=== PATIENT | female | born 1975 | race Caucasian/White ===

== ENCOUNTER 2019-03-11 13:51 | Emergency (ER) | payer BC ==
--- OUTSIDE RECORDS SUMMARY | 2019-03-11 13:53 | XMS REPORT | Clinical Summary ---
:1975 Author Organization [facility] Address [address] [place] [address] Care Team Providers Name Role Phone Asked, No Pcp Primary Care Provider Unavailable Allergies No Known Allergies Medications Medication Sig Dispensed Refills Start Date End Date Status ibuprofen Take 400 mg by 0 Active (ADVIL,MOTRIN) 200 MG mouth every 6 tablet (six) hours as needed for mild pain. dicyclomine (BENTYL) 20 Take 1 tablet (20 10 tablet 0 01/10/2017 Active mg tablet mg total) by mouth every 6 (six) hours as needed (bloating, GI cramping) for up to 10 doses. Active Problems Problem Noted Date Pyelonephritis 09/02/2016 Urinary tract infection, site not specified 09/02/2016 Family History Medical History Relation Name Comments No Known Problems Brother Diabetes Father Hypertension Father Leukemia Father No Known Problems Mother No Known Problems Sister Relation Name Status Comments Brother Alive Father Mother Alive Sister Alive Social History Tobacco Use Types Packs/Day Years Used Date Former Smoker Tobacco Cessation: Counseling Given: Yes Alcohol Use Drinks/Week oz/Week Comments No Sex Assigned at Date Recorded Not on file Job Start Date Occupation Industry Not on file Not on file Not on file Travel History Travel Start Travel End No recent travel history available. 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
--- OUTSIDE RECORDS SUMMARY | 2019-03-11 13:54 | XMS REPORT ---
:1975 [facility] Address [address] [place] [address] [address] [place] [address] Care Team Providers Name Role Phone Unavailable Unavailable Unavailable Payers Payer Name Policy Type Policy Number Effective Date Expiration Date Problems This patient has no known problems. Allergies, Adverse Reactions, Alerts Allergy Allergy Status Severity Reaction(s) Onset Inactive Treating Comments Name Type Date Date Clinician No Known DA Active U 2012-05 Allergies -26 00:00:0 0 Medications This patient has no known medications. Results Test Description Test Time Test Comments Text Results Atomic Results Result Comments - CT ABD PELVIS W/CONT 2018-11-23 18:54:00 Name: KATELYNN VAZQUEZ [facility] : 1975 Age/S: 42 / F [address] [facility] Unit #: [id number] Loc: [place] [address] Phys: Litzy Thomas MD Acct: [id number] Dis Date: Status: REG ER PHONE #: [phone] Exam Date: 11/23/2018 1843 FAX #: Reason: diarrhea EXAMS: CPT: [id number] CT ABD PELVIS W/CONT [address]8732 EXAM: - CT ABD PELVIS W/CONT INDICATION: 42 years -old Female with diarrhea Location code:C3 TECHNIQUE: Contrast - IV contrast was given. No oral contrast was given Portal venous phase - abdomen and pelvis No delayed phase images were obtained. Reconstructions - coronal and sagittal planes Automated exposure reduction (Auto mA/Smart mA) was utilized in compliance with ACR Image Wisely with DLP of 734.86 mGy-cm. COMPARISON: 01/12/2018 FINDINGS: Statements: None. Thoracic: Noncalcified 4 mm pulmonary nodule in the right lower lobe is unchanged with 05/13/2017 exam. Hepatobiliary: The liver is normal without focal lesion. Status post cholecystectomy. No renal the left kidney is surgically absent. The right kidney has a normal CT appearance. No biliary dilation. Pancreas: Normal. Spleen: Normal. Adrenals: Normal. Genitourinary: The kidneys are normal. No evidence of hydronephrosis. Evaluation of the bladder is limited, but no obvious bladder abnormality is present. Gastrointestinal: No bowel obstruction or perienteric inflammation. The appendix is normal. Vascular: No evidence of aneurysm or dissection. Lymphatics: No enlarged lymph nodes by CT size criteria. Bones/Soft Tissues: No acute osseous findings. No ventral hernias. PAGE 1 Signed Report (CONTINUED) Name: KATELYNN VAZQUEZ [facility] : 1975 Age/S: 42 / F [address] [address] Unit #: [id number] Loc: [place] [address] Phys: Litzy Thomas MD Acct: [id number] Dis Date: Status: REG ER PHONE #: [phone] Exam Date: 11/23/2018 1843 FAX #: Reason: diarrhea EXAMS: CPT: [id number] CT ABD PELVIS W/CONT 71522 <Continued> Peritoneum/Other: No extraluminal air. No extraluminal fluid. IMPRESSION: 1. No acute abnormality with chronic findings similar to prior exam as above. at 1854 Reported and signed by: Fareed Ames MD CC: Litzy Thomas MD; Zunilda SIMMONS Technologist:Clemente Martin RT(R)(CT); .. CTDI: DLP: Trnscb Date/Time: 11/23/2018 (1853) t.[email or web address] Orig Print D/T: S: 11/23/2018 (1856) PAGE 2 Signed Report UA RFLX MICR CULT IF INDICATED 2018-11-23 18:42:00 Test Item Value Reference Range Comments UA COLOR (test code=COLU) YELLOW discript YEL/STRAW UA APPEARANCE (test code=APPU) CLEAR discript CLEAR UA GLUCOSE DIPSTICK (test code=DGLUU) NEGATIVE mg/dL NEG UA BILIRUBIN DIPSTICK (test code=BILU) NEGATIVE mg/dL NEG UA KETONE DIPSTICK (test code=KETU) NEGATIVE mg/dL NEG UA SPECIFIC GRAVITY (test code=SGU) 1.010 SG 1.005-1.030 UA BLOOD DIPSTICK (test code=PRINCE) TRACE mg/DL NEG UA PH DIPSTICK (test code=YESENIA) 6.5 pH UNITS 5.0-7.0 UA PROTEIN DIPSTICK (test code=PROU) NEGATIVE mg/dL NEG UA UROBILINIOGEN DIPSTICK (test code=URO) 0.2 mg/dL <2.0 UA NITRITE DIPSTICK (test code=EMILIO) NEGATIVE SCREEN NEG UA LEUKOCYTE ESTERASE DIPSTICK (test code=LEUU) NEGATIVE Leuk/mcL NEGATIVE UA WBC (test code=WBCU) 0-1 #WBC/HPF 0-3 UA RBC (test code=RBCU) 0-1 #RBC/HPF 0-3 UA BACTERIA (test code=BACU) TRACE /HPF NONE-TRACE UA SQUAMOUS CELLS (test code=SQU) TRACE /HPF NONE UA CULTURE NEEDED? (test code=UACULT) NO, WBC<10 Criteria Culture CHK SOURCE OF URINE: CLEAN CATCHless than 18 yrs old, neutropenic, or urological surgery? NOPrimary Indication for Culture: Delirium No Other SourceDRUGS OF ABUSE SCREEN [id number] 18:42:00 Test Item Value Reference Range Comments URN COCAINE (test code=COCAURN) NEGATIVE SCcutoff <300 NG/ML URN CANNABINOIDS (test code=CANNABURN) NEGATIVE SCcutoff <50 NG/ML URN AMPHETAMINE (test code=AMPHETURN) NEGATIVE SCcutoff <1000 NG/ML URN BARBITURATE (test code=BARBITURN) NEGATIVE SCcutoff <200 NG/ML URN BENZODIAZEPINE (test code=BENZOURN) NEGATIVE SCcutoff <200 NG/ML URN OPIATES (test code=OPIATURN) NEGATIVE SCcutoff <2000 NG/ML URN PHENCYCLIDINE (PCP) (test NEGATIVE SCcutoff <25 NG/ML code=PHENCURN) URN METHADONE (test code=METHAURN) NEGATIVE SCcutoff <300 NG/ML SOURCE OF URINE: CLEAN CATCHless than 18 yrs old, neutropenic, or urological surgery? NOPrimary Indication for Culture: Delirium No Other SourceUA RFLX MICR CULT IF [id number] 18:21:00 Test Item Value Reference Range Comments UA COLOR (test code=COLU) YELLOW discript YEL/STRAW UA APPEARANCE (test code=APPU) CLEAR discript CLEAR UA GLUCOSE DIPSTICK (test code=DGLUU) NEGATIVE mg/dL NEG UA BILIRUBIN DIPSTICK (test code=BILU) NEGATIVE mg/dL NEG UA KETONE DIPSTICK (test code=KETU) NEGATIVE mg/dL NEG UA SPECIFIC GRAVITY (test code=SGU) 1.010 SG 1.005-1.030 UA BLOOD DIPSTICK (test code=PRINCE) TRACE mg/DL NEG UA PH DIPSTICK (test code=YESENIA) 6.5 pH UNITS 5.0-7.0 UA PROTEIN DIPSTICK (test code=PROU) NEGATIVE mg/dL NEG UA UROBILINIOGEN DIPSTICK (test 0.2 mg/dL <2.0 code=URO) UA NITRITE DIPSTICK (test code=EMILIO) NEGATIVE SCREEN NEG UA LEUKOCYTE ESTERASE DIPSTICK (test NEGATIVE Leuk/mcL NEGATIVE code=LEUU) UA WBC (test code=WBCU) 0-1 #WBC/HPF 0-3 UA RBC (test code=RBCU) 0-1 #RBC/HPF 0-3 UA BACTERIA (test code=BACU) TRACE /HPF NONE-TRACE UA SQUAMOUS CELLS (test code=SQU) TRACE /HPF NONE UA CULTURE NEEDED? (test code=UACULT) NO, WBC<10 Criteria Culture CHK SOURCE OF URINE: CLEAN CATCHless than 18 yrs old, neutropenic, or urological surgery? NOPrimary Indication for Culture: Delirium No Other SourceDRUGS OF ABUSE SCREEN [id number] 18:21:00 Test Item Value Reference Range Comments URN COCAINE (test code=COCAURN) SCcutoff <300 NG/ML URN CANNABINOIDS (test code=CANNABURN) SCcutoff <50 NG/ML URN AMPHETAMINE (test code=AMPHETURN) SCcutoff <1000 NG/ML URN BARBITURATE (test code=BARBITURN) SCcutoff <200 NG/ML URN BENZODIAZEPINE (test code=BENZOURN) SCcutoff <200 NG/ML URN OPIATES (test code=OPIATURN) SCcutoff <2000 NG/ML URN PHENCYCLIDINE (PCP) (test code=PHENCURN) SCcutoff <25 NG/ML URN METHADONE (test code=METHAURN) SCcutoff <300 NG/ML SOURCE OF URINE: CLEAN CATCHless than 18 yrs old, neutropenic, or urological surgery? NOPrimary Indication for Culture: Delirium No Other SourceBASIC METABOLIC [id number] 18:13:00 Test Item Value Reference Range Comments SODIUM (test code=NA) 138 mmol/L 134-147 POTASSIUM (test code=K) 4.0 mmol/L 3.4-5.0 CHLORIDE (test code=CL) 106 mmol/L 100-108 CARBON DIOXIDE (test code=CO2) 27 mmol/L 21-32 ANION GAP (test code=GAP) 5.0 GAP calc 4.0-15.0 GLUCOSE (test code=GLU) 91 MG/DL 70-110 BLOOD UREA NITROGEN (test code=BUN) 12 MG/DL 7-18 GLOMERULAR FILTRATION RATE (test >=60 max estimate estGFR >60 code=GFR) CREATININE (test code=CREAT) 0.9 MG/DL 0.6-1.0 CALCIUM (test code=CA) 8.7 MG/DL 8.5-10.1 Completed by Nursing: PARADISEHEPATIC FUNCTION [id number] 18:13:00 Test Item Value Reference Range Comments TOTAL PROTEIN (test code=PROT) 7.6 G/DL 6.4-8.2 ALBUMIN (test code=ALB) 3.6 G/DL 3.4-5.0 BILIRUBIN TOTAL (test code=BILT) 0.40 MG/DL 0.2-1.2 BILIRUBIN DIRECT (test code=BILD) 0.10 MG/DL 0.00-0.30 BILIRUBIN INDIRECT (test code=BILIND) 0.30 MG/DL 0.2-1.2 SGOT/AST (test code=AST) 10 Unit/L 15-37 SGPT/ALT (test code=ALT) 17 Unit/L 12-78 ALKALINE PHOSPHATASE TOTAL (test code=ALKP) 72 Unit/L 45-117 Completed by Nursing: [id number] 18:13:00 Test Item Value Reference Range Comments LIPASE (test code=LIP) 252 Unit/L 114-286 Completed by Nursing: [id number] 18:13:00 Test Item Value Reference Range Comments TROPONIN-I (test < 0.015 NG/ML 0.000-0.045 Negative: </=0.045 Positive: code=TROPI) >/=0.046 Correlation with serial results, other cardiac markers, and clinical findings is necessary to determine the clinical significance of this result. Quantitative results using different methodologies should not be compared to one another as numerical results may varyby method. Completed by Nursing: PARADISEBASIC METABOLIC [id number] 18:05:00 Test Item Value Reference Range Comments SODIUM (test code=NA) 138 mmol/L 134-147 POTASSIUM (test code=K) 4.0 mmol/L 3.4-5.0 CHLORIDE (test code=CL) 106 mmol/L 100-108 CARBON DIOXIDE (test code=CO2) 27 mmol/L 21-32 ANION GAP (test code=GAP) 5.0 GAP calc 4.0-15.0 GLUCOSE (test code=GLU) 91 MG/DL 70-110 BLOOD UREA NITROGEN (test code=BUN) 12 MG/DL 7-18 GLOMERULAR FILTRATION RATE (test code=GFR) estGFR >60 CREATININE (test code=CREAT) MG/DL 0.6-1.0 CALCIUM (test code=CA) 8.7 MG/DL 8.5-10.1 Completed by Nursing: PARADISEHEPATIC FUNCTION [id number] 18:05:00 Test Item Value Reference Range Comments TOTAL PROTEIN (test code=PROT) G/DL 6.4-8.2 ALBUMIN (test code=ALB) G/DL 3.4-5.0 BILIRUBIN TOTAL (test code=BILT) MG/DL 0.2-1.2 BILIRUBIN DIRECT (test code=BILD) MG/DL 0.00-0.30 BILIRUBIN INDIRECT (test code=BILIND) MG/DL 0.2-1.2 SGOT/AST (test code=AST) Unit/L 15-37 SGPT/ALT (test code=ALT) Unit/L 12-78 ALKALINE PHOSPHATASE TOTAL (test code=ALKP) Unit/L 45-117 Completed by Nursing: [id number] 18:05:00 Test Item Value Reference Range Comments LIPASE (test code=LIP) Unit/L 114-286 Completed by Nursing: [id number] 18:05:00 Test Item Value Reference Range Comments TROPONIN-I (test code=TROPI) NG/ML 0.000-0.045 Completed by Nursing: VALENTE RFLX MICR CULT IF [id number] 17:54:00 Test Item Value Reference Range Comments UA COLOR (test code=COLU) YELLOW discript YEL/STRAW UA APPEARANCE (test code=APPU) CLEAR discript CLEAR UA GLUCOSE DIPSTICK (test code=DGLUU) NEGATIVE mg/dL NEG UA BILIRUBIN DIPSTICK (test code=BILU) NEGATIVE mg/dL NEG UA KETONE DIPSTICK (test code=KETU) NEGATIVE mg/dL NEG UA SPECIFIC GRAVITY (test code=SGU) 1.010 SG 1.005-1.030 UA BLOOD DIPSTICK (test code=PRINCE) TRACE mg/DL NEG UA PH DIPSTICK (test code=YESENIA) 6.5 pH UNITS 5.0-7.0 UA PROTEIN DIPSTICK (test code=PROU) NEGATIVE mg/dL NEG UA UROBILINIOGEN DIPSTICK (test code=URO) 0.2 mg/dL <2.0 UA NITRITE DIPSTICK (test code=EMILIO) NEGATIVE SCREEN NEG UA LEUKOCYTE ESTERASE DIPSTICK (test NEGATIVE Leuk/mcL NEGATIVE code=LEUU) UA CULTURE NEEDED? (test code=UACULT) Criteria Culture CHK SOURCE OF URINE: CLEAN CATCHless than 18 yrs old, neutropenic, or urological surgery? NOPrimary Indication for Culture: Delirium No Other SourceDRUGS OF ABUSE SCREEN [id number] 17:54:00 Test Item Value Reference Range Comments URN COCAINE (test code=COCAURN) SCcutoff <300 NG/ML URN CANNABINOIDS (test code=CANNABURN) SCcutoff <50 NG/ML URN AMPHETAMINE (test code=AMPHETURN) SCcutoff <1000 NG/ML URN BARBITURATE (test code=BARBITURN) SCcutoff <200 NG/ML URN BENZODIAZEPINE (test code=BENZOURN) SCcutoff <200 NG/ML URN OPIATES (test code=OPIATURN) SCcutoff <2000 NG/ML URN PHENCYCLIDINE (PCP) (test code=PHENCURN) SCcutoff <25 NG/ML URN METHADONE (test code=METHAURN) SCcutoff <300 NG/ML SOURCE OF URINE: CLEAN CATCHless than 18 yrs old, neutropenic, or urological surgery? NOPrimary Indication for Culture: Delirium No Other SourceCBC W/AUTO [id number] 17:48:00 Test Item Value Reference Range Comments WHITE BLOOD CELL (test code=WBC) 10.7 K/mm3 3.5-11.0 RED BLOOD CELL (test code=RBC) 4.43 M/mm3 4.70-6.10 HEMOGLOBIN (test code=HGB) 14.0 G/DL 10.4-14.9 HEMATOCRIT (test code=HCT) 40.9 % 31.5-44.1 MEAN CELL VOLUME (test code=MCV) 92.3 Fl 84.5-98.6 MEAN CELL HGB (test code=MCH) 31.6 pg 27.0-34.2 MEAN CELL HGB CONCETRATION (test code=MCHC) 34.2 G/DL 31.5-34.0 RED CELL DISTRIBUTION WIDTH (test code=RDW) 12.8 SD 11.5-14.5 PLATELET COUNT (test code=PLT) 367.0 K/mm3 150-450 MEAN PLATELET VOLUME (test code=MPV) 8.60 fL 7.0-10.5 NEUTROPHIL % (test code=NT%) 59.1 % 40-76 LYMPHOCYTE % (test code=LY%) 32.8 % 20.5-51.1 MONOCYTE % (test code=MO%) 6.9 % 1.7-9.3 EOSINOPHIL % (test code=EO%) 1.0 % 0.0-6.0 BASOPHIL % (test code=BA%) 0.2 % 0.0-2.0 NEUTROPHIL # (test code=NT#) 6.29 K/mm3 1.8-7.6 LYMPHOCYTE # (test code=LY#) 3.5 K/mm3 0.6-3.2 MONOCYTE # (test code=MO#) 0.7 K/mm3 0.3-1.1 EOSINOPHIL # (test code=EO#) 0.1 K/mm3 0.0-0.4 BASOPHIL # (test code=BA#) 0.0 K/mm3 0.0-0.1 MANUAL DIFF REQUIRED (test code=MDIFF) NO DIFF/SCN CRITERIA COMPREHENSIVE METABOLIC [id number] 20:58:00 Test Item Value Reference Range Comments SODIUM (test code=NA) 139 mmol/L 134-147 POTASSIUM (test code=K) 4.2 mmol/L 3.4-5.0 CHLORIDE (test code=CL) 107 mmol/L 100-108 CARBON DIOXIDE (test code=CO2) 22 mmol/L 21-32 ANION GAP (test code=GAP) 10.0 GAP calc 4.0-15.0 GLUCOSE (test code=GLU) 88 MG/DL 70-110 BLOOD UREA NITROGEN (test code=BUN) 12 MG/DL 7-18 GLOMERULAR FILTRATION RATE (test >=60 max estimate estGFR >60 code=GFR) CREATININE (test code=CREAT) 0.9 MG/DL 0.6-1.0 TOTAL PROTEIN (test code=PROT) 7.1 G/DL 6.4-8.2 ALBUMIN (test code=ALB) 3.4 G/DL 3.4-5.0 GLOBULIN (test code=GLOB) 3.7 GM/dL ALBUMIN/GLOBULIN RATIO (test 0.9 RATIO 1.2-2.2 code=A/G) CALCIUM (test code=CA) 8.6 MG/DL 8.5-10.1 BILIRUBIN TOTAL (test code=BILT) 0.20 MG/DL 0.2-1.2 SGOT/AST (test code=AST) 12 Unit/L 15-37 SGPT/ALT (test code=ALT) 16 Unit/L 12-78 ALKALINE PHOSPHATASE TOTAL (test 63 Unit/L 45-117 code=ALKP) COMPREHENSIVE METABOLIC [id number] 20:32:00 Test Item Value Reference Range Comments SODIUM (test code=NA) 139 mmol/L 134-147 POTASSIUM (test code=K) 4.2 mmol/L 3.4-5.0 CHLORIDE (test code=CL) 107 mmol/L 100-108 CARBON DIOXIDE (test code=CO2) 22 mmol/L 21-32 ANION GAP (test code=GAP) 10.0 GAP calc 4.0-15.0 GLUCOSE (test code=GLU) 88 MG/DL 70-110 BLOOD UREA NITROGEN (test code=BUN) 12 MG/DL 7-18 GLOMERULAR FILTRATION RATE (test code=GFR) estGFR >60 CREATININE (test code=CREAT) MG/DL 0.6-1.0 TOTAL PROTEIN (test code=PROT) G/DL 6.4-8.2 ALBUMIN (test code=ALB) G/DL 3.4-5.0 GLOBULIN (test code=GLOB) GM/dL ALBUMIN/GLOBULIN RATIO (test code=A/G) RATIO 1.2-2.2 CALCIUM (test code=CA) 8.6 MG/DL 8.5-10.1 BILIRUBIN TOTAL (test code=BILT) MG/DL 0.2-1.2 SGOT/AST (test code=AST) Unit/L 15-37 SGPT/ALT (test code=ALT) Unit/L 12-78 ALKALINE PHOSPHATASE TOTAL (test code=ALKP) Unit/L 45-117 URINALYSIS [id number] 20:26:00 Test Item Value Reference Range Comments UA COLOR (test code=COLU) YELLOW discript YEL/STRAW UA APPEARANCE (test code=APPU) CLEAR discript CLEAR UA GLUCOSE DIPSTICK (test code=DGLUU) NEGATIVE mg/dL NEG UA BILIRUBIN DIPSTICK (test code=BILU) NEGATIVE mg/dL NEG UA KETONE DIPSTICK (test code=KETU) NEGATIVE mg/dL NEG UA SPECIFIC GRAVITY (test code=SGU) 1.020 SG 1.005-1.030 UA BLOOD DIPSTICK (test code=PRINCE) 1+ mg/DL NEG UA PH DIPSTICK (test code=YESENIA) 5.5 pH UNITS 5.0-7.0 UA PROTEIN DIPSTICK (test code=PROU) NEGATIVE mg/dL NEG UA UROBILINIOGEN DIPSTICK (test code=URO) 0.2 mg/dL <2.0 UA NITRITE DIPSTICK (test code=EMILIO) NEGATIVE SCREEN NEG UA LEUKOCYTE ESTERASE DIPSTICK (test NEGATIVE Leuk/mcL NEGATIVE code=LEUU) UA WBC (test code=WBCU) NONE SEEN #WBC/HPF 0-3 UA RBC (test code=RBCU) 1-3 #RBC/HPF 0-3 UA BACTERIA (test code=BACU) NONE SEEN /HPF NONE-TRACE UA SQUAMOUS CELLS (test code=SQU) NONE SEEN /HPF NONE URINALYSIS [id number] 20:25:00 Test Item Value Reference Range Comments UA COLOR (test code=COLU) YELLOW discript YEL/STRAW UA APPEARANCE (test code=APPU) CLEAR discript CLEAR UA GLUCOSE DIPSTICK (test code=DGLUU) NEGATIVE mg/dL NEG UA BILIRUBIN DIPSTICK (test code=BILU) NEGATIVE mg/dL NEG UA KETONE DIPSTICK (test code=KETU) NEGATIVE mg/dL NEG UA SPECIFIC GRAVITY (test code=SGU) 1.020 SG 1.005-1.030 UA BLOOD DIPSTICK (test code=PRINCE) 1+ mg/DL NEG UA PH DIPSTICK (test code=YESENIA) 5.5 pH UNITS 5.0-7.0 UA PROTEIN DIPSTICK (test code=PROU) NEGATIVE mg/dL NEG UA UROBILINIOGEN DIPSTICK (test code=URO) 0.2 mg/dL <2.0 UA NITRITE DIPSTICK (test code=EMILIO) NEGATIVE SCREEN NEG UA LEUKOCYTE ESTERASE DIPSTICK (test NEGATIVE Leuk/mcL NEGATIVE code=LEUU) CBC W/AUTO [id number] 20:23:00 Test Item Value Reference Range Comments WHITE BLOOD CELL (test code=WBC) 9.2 K/mm3 3.5-11.0 RED BLOOD CELL (test code=RBC) 4.45 M/mm3 4.70-6.10 HEMOGLOBIN (test code=HGB) 13.6 G/DL 10.4-14.9 HEMATOCRIT (test code=HCT) 40.0 % 31.5-44.1 MEAN CELL VOLUME (test code=MCV) 89.9 Fl 84.5-98.6 MEAN CELL HGB (test code=MCH) 30.6 pg 27.0-34.2 MEAN CELL HGB CONCETRATION (test code=MCHC) 34.0 G/DL 31.5-34.0 RED CELL DISTRIBUTION WIDTH (test code=RDW) 13.3 SD 11.5-14.5 PLATELET COUNT (test code=PLT) 298.0 K/mm3 150-450 MEAN PLATELET VOLUME (test code=MPV) 8.70 fL 7.0-10.5 NEUTROPHIL % (test code=NT%) 55.0 % 40-76 LYMPHOCYTE % (test code=LY%) 36.8 % 20.5-51.1 MONOCYTE % (test code=MO%) 6.3 % 1.7-9.3 EOSINOPHIL % (test code=EO%) 1.5 % 0.0-6.0 BASOPHIL % (test code=BA%) 0.4 % 0.0-2.0 NEUTROPHIL # (test code=NT#) 5.08 K/mm3 1.8-7.6 LYMPHOCYTE # (test code=LY#) 3.4 K/mm3 0.6-3.2 MONOCYTE # (test code=MO#) 0.6 K/mm3 0.3-1.1 EOSINOPHIL # (test code=EO#) 0.1 K/mm3 0.0-0.4 BASOPHIL # (test code=BA#) 0.0 K/mm3 0.0-0.1 MANUAL DIFF REQUIRED (test code=MDIFF) NO DIFF/SCN CRITERIA TROPONIN I [id number] 20:20:00 Test Item Value Reference Range Comments TROPONIN I RAPID (test 0.00 ng/mL 0.00-0.08 - The use of serial sampling code=TROPIRAP) and testing protocol is a recommended practice- An elevated troponin level alone is often not sufficient for diagnosis of myocardial infarction. - XR CHEST 2 [id number] 19:54:00 Name: KATELYNN VAZQUEZ [facility] : 1975 Age/S: 42 / F [address] [address] Unit #: [id number] Loc: [place] [address] Phys: Litzy Thomas MD Acct: [id number] Dis Date: Status: REG ER PHONE #: [phone] Exam Date: 08/07/20181944 FAX #: Reason: cough, chest pain EXAMS: CPT: [id number] XR CHEST 2 V [id number] Fluoro Time: DAP (Gy m2): Air Kerma (mGy): Chest x-ray 2 views History: cough, chest pain Comparison: March 31, 2018 Location: R16 Number of images: 2 The heart appears unchanged in size. Pulmonary vasculatureis unremarkable. The visualized lung singh appear to be free of disease. The bones appear unchanged. IMPRESSION: There is no radiographic evidence of acute cardiopulmonary disease. Electronically Signed by Flor Hernandez on at 1954 Reported and signed by: Karlo Hernandez M.D. CC: Litzy Thomas MD; Sandra Moreno NP; Sanjuanita Johnson MD PAGE 1 Signed Report Name: KATELYNN VAZQUEZ [facility] : 05/1976 Age/S: 42 / F [address] [address] Unit #: [id number] Loc: [place] [address] Phys: Litzy Thomas MD Acct: [id number] Dis Date: Status: REG ER PHONE #: [phone] Exam Date: 08/07/20181944 FAX #: Reason: cough, chest pain EXAMS: CPT: [id number] XR CHEST 2 V 67433 Fluoro Time: DAP (Gy m2): Air Kerma (mGy): < Continued> Technologist: Clemente Martin, RT(R)(CT); ... Trnscb Date/Time: 08/07/2018 (1953) t.SDR.PMT Orig Print D/T: S: 08/07/2018 (1956) PAGE 2 Signed Report
--- OUTSIDE RECORDS SUMMARY | 2019-03-11 13:54 | XMS REPORT ---
:1975 Author Organization [employer] Care Team Providers Name Role Phone Sharon Huffman Provider Role Unavailable Allergies, Adverse Reactions, Alerts Substance Reaction Event Type N.K.D.A. Info Not Available Non Drug Allergy Problems Problem Type Condition Code Onset Dates Condition Status Problem BMI 45.0-49.9, adult Z68.42 Active Problem Elevated BP without diagnosis of R03.0 Active hypertension Assessment Hypercholesterolemia E78.00 Active Assessment Hyperglycemia R73.9 Active Problem Hyperglycemia R73.9 Active Problem Morbid obesity E66.01 Active Problem Hypercholesterolemia E78.00 Active Problem Cancer C80.1 Active Problem History of kidney cancer Z85.528 Active Problem Abnormal thyroid function test R94.6 Active Problem Palpitations R00.2 Active Medications No Known Medications Results No Known Results Summary Purpose [employer] Submission
--- NOTE | 2019-03-11 14:42 | RAD REPORT ---
EXAM DESCRIPTION: RAD - Chest Single View - 03/11/2019 2:27 pm CLINICAL HISTORY: PALPITATIONS Chest pain. COMPARISON: Chest Pa And Lat (2 Views) dated 06/13/2017 FINDINGS: Portable technique limits examination quality. The lungs are grossly clear. The heart is mildly enlarged in size. No displaced fractures.
[2019-03-11 14:48] LABS: Absolute Lymphocytes (CBC) 2.2 K/uL (0.7-4.9); Basophils % 0.4 % (0-1.3); Lymphocytes % 16.6 % (15.3-44.8); MPV 7.3 fL (7.6-11.3)
[2019-03-11 14:52] LABS: Protime INR 1.04
[2019-03-11 15:04] LABS: ALT/SGPT 16 U/L (12-78); AST/SGOT 7 U/L (15-37); Albumin 3.5 g/dL (3.4-5.0); Alkaline Phosphatase 64 U/L (45-117); BUN Blood Urea Nitrogen 14 mg/dL (7-18); Bicarbonate 27 mmol/L (21-32); Bilirubin Direct < 0.1 mg/dL (0-0.2); Bilirubin Total 0.3 mg/dL (0.2-1.0); Glucose Level 107 mg/dL (74-106); Magnesium 2.1 mg/dL (1.8-2.4); NT PRO-BNP 207 pg/mL (<125); Potassium 4.1 mmol/L (3.5-5.1); Protein, Total 7.5 g/dL (6.4-8.2); Sodium Level 138 mmol/L (136-145); Troponin (Emerg Dept Use Only) < 0.02 ng/mL (0.0-0.045)
[2019-03-11] MEDS ORDERED: NA CHLORIDE 0.9% 500 ML ONE (15:56)
--- NOTE | 2019-03-11 16:56 | EKG ---
Test Date: 2019-03-11 Test Time: 14:04:18 Plan Manager: ROMANA MEASUREMENT RESULTS: Intervals: Rate: 99 NV: 138 QRSD: 76 QT: 342 QTc: 438 [place]: P: 76 NV: 138 QRS: 72 T: 69 INTERPRETIVE STATEMENTS: Normal sinus rhythm Cannot rule out Anterior infarct, age undetermined Abnormal ECG Compared to ECG 06/13/2017 12:23:08 No significant changes Electronically Signed On 03-11-19 16:55:09 CDT by Emiliano Perkins
--- NOTE | 2019-03-11 17:22 | ER ---
Nurse's Notes [facility] Name: Sonal Monique Age: 43 yrs Sex: Female : 1975 Arrival Date: 03/11/2019 Time: 13:56 Bed 8 Private MD: Diagnosis: Palpitations;Chest pain, unspecified Presentation: 03/11 13:57 Presenting complaint: Patient states: "I was just at work and started having aa5 palpitations, chest tightness, sweaty, and felt like I was going to pass out". Pt currently reports palpitations and chest tightness. 13:57 Transition of care: patient was not received from another setting of care. Onset of aa5 symptoms was March 11, 2019. Risk Assessment: Do you want to hurt yourself or someone else? Patient reports no desire to harm self or others. Initial Sepsis Screen: Does the patient meet any 2 criteria? HR > 90 bpm. Does the patient have a suspected source of infection? No. Patient's initial sepsis screen is negative. Care prior to arrival: None. 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 - Social history:: Smoking status: Patient/guardian denies using tobacco. - Ebola Screening: : No symptoms or risks identified at this time. Screenin:21 Abuse screen: Denies threats or abuse. Denies injuries from another. Nutritional ph screening: No deficits noted. Tuberculosis screening: No symptoms or risk factors identified. Fall Risk None identified. Assessment: 14:43 General: Appears in no apparent distress. comfortable, obese, well groomed, Behavior is ph calm, cooperative, appropriate for age, Denies fever, chills. Pain: Complains of pain in chest Quality of pain is described as "tight" Pain began suddenly. Neuro: Level of Consciousness is awake, alert, obeys commands, Oriented to person, place, time, situation. Cardiovascular: Reports chest pain, lightheadedness, nausea, palpitations, Denies shortness of breath, syncope, vomiting, Capillary refill < 3 seconds in bilateral fingers Patient's skin is warm and dry. Rhythm is sinus rhythm Chest pain quality is "tight" is located in right left anterior chest wall. Respiratory: Airway is patent Respiratory effort is even, unlabored, Respiratory pattern is regular, symmetrical, Denies shortness of breath. GI: Reports nausea, Patient currently denies abdominal pain, diarrhea, vomiting. Derm: Skin is intact, is healthy with good turgor, Skin is pink, warm \\T\\ dry. Musculoskeletal: Circulation, motion, and sensation intact. Range of motion: intact in all extremities. 16:00 Reassessment: Patient appears in no apparent distress at this time. Patient and/or ph family updated on plan of care and expected duration. Pain level reassessed. Patient is alert, oriented x 3, equal unlabored respirations, skin warm/dry/pink. 17:29 Reassessment: Patient appears in no apparent distress at this time. Patient and/or ph family updated on plan of care and expected duration. Pain level reassessed. Patient is alert, oriented x 3, equal unlabored respirations, skin warm/dry/pink. Vital Signs: 14:00 BP 148 / 94; Pulse 103; Resp 20 S; Pulse Ox 97% on R/A; Weight 145.15 kg (R); Height 5 aa5 ft. 6 in. (167.64 cm) (R); Pain 4/10; 14:05 Temp 98.0(O); dh3 14:46 BP 136 / 85; Pulse 85; Resp 18; Pulse Ox 100% on R/A; ph 15:44 BP 124 / 81; Pulse 82; Resp 18; Pulse Ox 100% on R/A; ph 16:56 BP 124 / 82; Pulse 85; Resp 16; Pulse Ox 100% ; ph 14:00 Body Mass Index 51.65 (145.15 kg, 167.64 cm) aa5 ED Course: 13:56 Patient arrived in ED. mr 13:56 Arm band placed on Patient placed in an exam room, on a stretcher. aa5 14:00 Keara Haji, RN is Primary Nurse. ph 14:06 Triage completed. aa5 14:07 EKG done, by surgical services tech. reviewed by Win Benitez MD. at1 14:09 Louie Peralta MD is Attending Physician. kdr 14:25 Patient has correct armband on for positive identification. Placed in gown. Bed in low ph position. Call light in reach. Side rails up X 1. pig lead melter helper on. Pulse ox on. NIBP on. Door closed. Noise minimized. Warm blanket given. Head of bed elevated. 14:26 XRAY Chest (1 view) In Process Unspecified. EDMS 14:26 Initial lab(s) drawn, by me, sent to lab. Inserted saline lock: 20 gauge in right 3 antecubital area, using aseptic technique. Blood collected. 16:18 Troponin (emerg Dept Use Only): Draw at 16:10 Sent. iw 16:18 Repeat lab(s) drawn. by me, sent to lab. iw 17:29 No provider procedures requiring assistance completed. IV discontinued, intact, ph bleeding controlled, No redness/swelling at site. Pressure dressing applied. Administered Medications: 16:07 Drug: NS 0.9% 500 ml Route: IV; Rate: bolus; Site: right antecubital; ph 17:29 Follow up: Response: No adverse reaction; IV Status: Completed infusion; IV Intake: ph 500ml Intake: 17:29 IV: 500ml; Total: 500ml. ph Outcome: 17:14 Discharge ordered by . kdr 17:30 Discharged to home ambulatory, with significant other. ph 17:30 Condition: good 17:30 Discharge instructions given to patient, Instructed on discharge instructions, follow up and referral plans. Demonstrated understanding of instructions, follow-up care. 17:30 Patient left the ED. ph Signatures: Dispatcher [employer] EDKY Louie Peralta MD MD [facility] Melecio, Fidelia mr Karla Gil RN RN iw Shama Herbert RN RN aa5 Hermelinda Moreira, ladle puller EKG Tat1 Keara Haji RN RN [place] [id number]
--- NOTE | 2019-03-11 17:23 | EDPHYS ---
Physician Documentation [facility] Name: Sonal Monique Age: 43 yrs Sex: Female : 1975 Arrival Date: 03/11/2019 Time: 13:56 Bed 8 Private MD: ED Physician Louie Peralta HPI: 03/11 19:48 This 43 yrs old Female presents to ER via Ambulatory with complaints of kdr Palpitations. 19:48 The patient presents with a history of irregular heart beat. Context: The symptoms kdr occur at rest, with light activity. Onset: The symptoms/episode began/occurred suddenly, today. Duration: The patient or guardian reports a single episode. Modifying factors: The symptoms are aggravated by nothing. The symptoms are alleviated by nothing. Associated signs and symptoms: Pertinent positives: lightheadedness, SOB, near-syncope, Diaphoresis. Severity of symptoms: At their worst the symptoms were very mild in the emergency department the symptoms are unchanged. The patient has not experienced similar symptoms in the past. The patient has not recently seen a physician. 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 - Social history:: Smoking status: Patient/guardian denies using tobacco. - Ebola Screening: : No symptoms or risks identified at this time. ROS: 19:48 Constitutional: Negative for fever, chills, and weight loss, Eyes: Negative for injury, kdr pain, redness, and discharge, Neck: Negative for injury, pain, and swelling, Respiratory: Negative for shortness of breath, cough, wheezing, and pleuritic chest pain, Abdomen/GI: Negative for abdominal pain, nausea, vomiting, diarrhea, and constipation, Back: Negative for injury and pain, : Negative for injury, bleeding, discharge, and swelling, MS/Extremity: Negative for injury and deformity, Skin: Negative for injury, rash, and discoloration, Neuro: Negative for headache, weakness, numbness, tingling, and seizure activity. Psych: Negative for depression, anxiety, suicide ideation, homicidal ideation, and hallucinations, Allergy/Immunology: Negative for hives, rash, and allergies, Endocrine: Negative for neck swelling, polydipsia, polyuria, polyphagia, and marked weight changes, Hematologic/Lymphatic: Negative for swollen nodes, abnormal bleeding, and unusual bruising. 19:48 Cardiovascular: Positive for palpitations, Negative for edema, orthopnea, palpitations. 19:48 Respiratory: Positive for shortness of breath. 19:48 Skin: Positive for diaphoresis. Exam: 19:48 Constitutional: This is a well developed, well nourished patient who is awake, alert, kdr and in no acute distress. Head/Face: Normocephalic, atraumatic. Eyes: Pupils equal round and reactive to light, extra-ocular motions intact. Lids and lashes normal. Conjunctiva and sclera are non-icteric and not injected. Cornea within normal limits. Periorbital areas with no swelling, redness, or edema. Neck: Trachea midline, no thyromegaly or masses palpated, and no cervical lymphadenopathy. Supple, full range of motion without nuchal rigidity, or vertebral point tenderness. No Meningismus. Chest/axilla: Normal chest wall appearance and motion. Nontender with no deformity. No lesions are appreciated. Cardiovascular: Regular rate and rhythm with a normal S1 and S2. No gallops, murmurs, or rubs. Normal PMI, no JVD. No pulse deficits. Respiratory: Lungs have equal breath sounds bilaterally, clear to auscultation and percussion. No rales, rhonchi or wheezes noted. No increased work of breathing, no retractions or nasal flaring. Abdomen/GI: Soft, non-tender, with normal bowel sounds. No distension or tympany. No guarding or rebound. No evidence of tenderness throughout. Back: No spinal tenderness. No costovertebral tenderness. Full range of motion. Skin: Warm, dry with normal turgor. Normal color with no rashes, no lesions, and no evidence of cellulitis. MS/ Extremity: Pulses equal, no cyanosis. Neurovascular intact. Full, normal range of motion. Neuro: Awake and alert, GCS 15, oriented to person, place, time, and situation. Cranial nerves II-XII grossly intact. Motor strength 5/5 in all extremities. Sensory grossly intact. Cerebellar exam normal. Normal gait. Psych: Awake, alert, with orientation to person, place and time. Behavior, mood, and affect are within normal limits. Vital Signs: 14:00 BP 148 / 94; Pulse 103; Resp 20 S; Pulse Ox 97% on R/A; Weight 145.15 kg (R); Height 5 aa5 ft. 6 in. (167.64 cm) (R); Pain 4/10; 14:05 Temp 98.0(O); dh3 14:46 BP 136 / 85; Pulse 85; Resp 18; Pulse Ox 100% on R/A; ph 15:44 BP 124 / 81; Pulse 82; Resp 18; Pulse Ox 100% on R/A; ph 16:56 BP 124 / 82; Pulse 85; Resp 16; Pulse Ox 100% ; ph 14:00 Body Mass Index 51.65 (145.15 kg, 167.64 cm) aa5 MDM: 17:14 Patient medically screened. kdr 19:48 Data reviewed: vital signs, nurses notes, lab test result(s), radiologic studies. kdr Counseling: I had a detailed discussion with the patient and/or guardian regarding: the historical points, exam findings, and any diagnostic results supporting the discharge/admit diagnosis, lab results, radiology results, the need for outpatient follow up. 03/11 14:10 Order name: Basic Metabolic Panel; Complete Time: 15:17 [facility] 03/11 14:10 Order name: CBC with Diff; Complete Time: 15:17 [facility] 03/11 14:10 Order name: LFT's; Complete Time: 15:17 [facility] 03/11 14:10 Order name: Magnesium; Complete Time: 15:17 [facility] 03/11 14:10 Order name: NT PRO-BNP; Complete Time: 15:17 [facility] 03/11 14:10 Order name: PT-INR; Complete Time: 15:17 [facility] 03/11 14:10 Order name: Troponin (emerg Dept Use Only); Complete Time: 15:17 [facility] 03/11 14:10 Order name: XRAY Chest (1 view); Complete Time: 15:17 [facility] 03/11 14:10 Order name: EKG; Complete Time: 14:11 [facility] 03/11 14:10 Order name: Cardiac monitoring; Complete Time: 14:30 [facility] 03/11 14:10 Order name: EKG - Nurse/Tech; Complete Time: 14:30 [facility] 03/11 14:43 Order name: D-Dimer; Complete Time: 15:49 [facility] 03/11 15:52 Order name: Troponin (emerg Dept Use Only): Draw at 16:10; Complete Time: 17:11 [facility] 03/11 14:10 Order name: IV Saline Lock; Complete Time: 14:30 [facility] 03/11 14:10 Order name: Labs collected and sent; Complete Time: 14:30 [facility] 03/11 14:10 Order name: O2 Per Protocol; Complete Time: 14:30 [facility] 03/11 14:10 Order name: O2 Sat Monitoring; Complete Time: 14:30 [facility] Administered Medications: 16:07 Drug: NS 0.9% 500 ml Route: IV; Rate: bolus; Site: right antecubital; ph 17:29 Follow up: Response: No adverse reaction; IV Status: Completed infusion; IV Intake: ph 500ml Disposition: 03/11/19 17:14 Discharged to Home. Impression: Palpitations, Chest pain, unspecified. - Condition is Stable. - Discharge Instructions: Nonspecific Chest Pain, [id number], Palpitations, [id number]. - Medication Reconciliation Form, Thank You Letter form. - Follow up: Private Physician; When: 2 - 3 days; Reason: If symptoms return, Further diagnostic work-up, Recheck today's complaints, Continuance of care, Re-evaluation by your physician. - Problem is new. - Symptoms have improved. Signatures: Dispatcher [employer] EDMS Louie Peralta MD MD kdr Shama Herbert, DAVID RN aa5 Keara Haji RN RN ph Corrections: (The following items were deleted from the chart) 17:30 17:14 03/11/2019 17:14 Discharged to Home. Impression: Palpitations; Chest pain, ph unspecified. Condition is Stable. Forms are Medication Reconciliation Form, Thank You Letter, Antibiotic Education, Prescription Opioid Use. Follow up: Private Physician; When: 2 - 3 days; Reason: If symptoms return, Further diagnostic work-up, Recheck today's complaints, Continuance of care, Re-evaluation by your physician. Problem is new. Symptoms have improved. kdr
[2019-03-11 20:08] VITALS: TEMP 98
[2019-03-11 20:10] VITALS: O2SAT 100
[2019-03-11 20:12] VITALS: BP 124/82
== END 2019-03-11 17:30 | disposition home or self-care (01) ==
LOC: ER 13:51
DX: R07.9 Chest pain, unspecified (principal); F32.9 Major depressive disorder, single episode, unspecified; Z85.528 Personal history of other malignant neoplasm of kidney
CPT/HCPCS: 36415; 71045; 80048; 80076; 83735; 83880; 84484; 85025; 85379; 85610; 93005; 96360; 99285